=== PATIENT | female | born 1950 | race Caucasian/White ===

== ENCOUNTER 2017-11-22 08:30 | Emergency (ER) | payer BC, MEDICARE ==
[2017-11-22] MEDS ORDERED: Ketorolac Tromethamine 60 MG/2 ML VIAL ONE (09:20)
--- NOTE | 2017-11-22 10:18 | RAD ---
FOUR VIEWS RIGHT KNEE: DATE: 11/22/17. HISTORY: Right knee pain. History of prior surgery a few years ago. COMPARISON: 07/06/15. FINDINGS: Postoperative changes of the patella are again noted with a screw and cerclage wire surrounding the p atella. However, there is a fracture of the cerclage wire in 2 separate locations which was also not ed on the prior exam. No acute fracture or dislocation is seen. No joint space narrowing is appreci ated. Minimal osteophytes are seen at the medial joint compartment. A small joint effusion is prese nt. IMPRESSION: 1. Small joint effusion without evidence of an acute fracture. 2. Postoperative changes of the patella with fractured cerclage wire again noted. POS: [facility]
== END 2017-11-22 10:28 | disposition home or self-care (01) ==
LOC: ERS 08:30
DX: M25.561 Pain in right knee (principal); G47.30 Sleep apnea, unspecified; K21.9 Gastro-esophageal reflux disease without esophagitis
CPT/HCPCS: 96372; J1885

== ENCOUNTER 2018-07-02 22:40 | Emergency (ER) | payer OTHER, MEDICARE ==
--- NOTE | 2018-07-02 23:21 | CT ---
BRAIN CT WITHOUT IV CONTRAST: 07/02/18 HISTORY: Injury following a fall face first after tripping in the parking lot. Positive loss of consciousness. COMPARISON: 12/10/16. FINDINGS: There is no focal intracranial mass or acute hemorrhage. Small stable punctate left frontal subcortic al calcified focus. Minimal sinus mucosal disease. IMPRESSION: No significant acute intracranial process. No mass or bleed. Stable appearing left frontal subcortica l calcific punctate focus. POS: [facility]
--- NOTE | 2018-07-02 23:30 | CT ---
CERVICAL SPINE CT SCAN WITHOUT IV CONTRAST 07/02/18 HISTORY: Cervical injury following a trip and fall in the parking lot. Generalized disc osteophytosis and facet arthrosis changes. Evidence for spondylosis. There is no e vidence for acute fracture or dislocation or significant malalignment. The C7 vertebral body is compl etely included although the T1 vertebral body is not included. The C7-T1 space is included on this st udy. IMPRESSION: Cervical spondylosis without evidence for acute fracture or dislocation. Findings were discussed with Dr. Pedersen in regards to the fact that T1 was not completely included on this study and that if this patient had any symptoms, particularly any pain at the cervicothoracic ju nction, that the patient be returned back to CT for some additional imaging to completely include the T1 level. He indicated that the patient was not tender in this region. Additionally, findings of no significant acute process on the head CT scan was discussed with Dr. Pedersen as well at 2321 hours. POS: [facility]
--- NOTE | 2018-07-02 23:34 | RAD ---
RIGHT CLAVICLE TWO VIEWS: 07/02/18 HISTORY: Right clavicle pain following a trip and fall. Large body habitus somewhat lowers the sensitivity of this study. Comparison is made to a prior 01/08/06 study. Arthrosis and degenerative changes noted of the AC joint and glenohumeral joint. No obvious acute cla vicle fracture is seen. IMPRESSION: Somewhat limited exam because of body habitus. No overt acute fracture or dislocation. Degenerative changes. POS: [facility]
--- NOTE | 2018-07-02 23:35 | RAD ---
CHEST ONE VIEW: 07/02/18 HISTORY: Chest injury following a trip and fall in the parking lot with chest injury. COMPARISON: 09/22/14. Large body habitus somewhat lowers the sensitivity of this study. Heart size is within upper range of normal limits. No confluent pneumonia, overt edema, or pleural effusion. IMPRESSION: No significant acute intrathoracic disease. Borderline sized heart. POS: [facility]
[2018-07-03] MEDS ORDERED: Ketorolac Tromethamine 30 MG/ML VIAL ONE (00:48)
[2018-07-03] MEDS ORDERED: HYDROcodone/Acetaminophen 5/325 mg Tablet ONE (00:48)
== END 2018-07-03 00:58 | disposition home or self-care (01) ==
LOC: ERS 22:40
DX: S43.401A Unspecified sprain of right shoulder joint, initial encounter (principal); G47.30 Sleep apnea, unspecified; K21.9 Gastro-esophageal reflux disease without esophagitis; W01.198A Fall on same level from slipping, tripping and stumbling with subsequent striking against other object, initial encounter; Y92.481 Parking lot as the place of occurrence of the external cause
CPT/HCPCS: 70450; 71045; 72125; 96374; J1885

== ENCOUNTER 2019-01-18 10:30 | Outpatient (CLI) | payer MEDICARE ==
--- NOTE | 2019-01-18 12:24 | RAD ---
LEFT ANKLE 3 VIEWS: Date: 01/18/19 HISTORY: Pain and swelling in the left ankle. FINDINGS/IMPRESSION: No acute fracture or dislocation or bony destruction seen. The ankle mortise is maintained. There are posterior and plantar calcaneal spurs. POS: [facility]
== END 2019-01-18 10:31 | disposition home or self-care (01) ==
LOC: RAD-FRANK 10:30
PROVIDERS: ATTEND Nurse Practitioner Family
DX: M25.472 Effusion, left ankle (principal); M77.32 Calcaneal spur, left foot

== ENCOUNTER 2019-03-31 06:33 | Outpatient (CLI) | payer MEDICARE, OTHER ==
[2019-03-31 11:42] LABS: #Eosinphils 0.3 thou/uL (0.0-0.7); #Lymphocytes 1.9 thou/uL (1.20-3.40); #Monocytes 0.6 thou/uL (0.11-0.59); #Neutrophils 3.8 thou/uL (1.40-6.50); %Basophils 0.7 % (0.0-1.0); %Eosinophils 4.5 % (0.0-10.0); %Lymphocytes 28.8 % (21.0-51.0); %Monocytes 8.9 % (0.0-10.0); %Neutrophils 57.1 % (42.0-75.0); Hemoglobin 14.9 g/dL (12.0-16.0); Mean Corpuscular HGB CONC 32.7 g/dL (32.0-36.0); Mean Corpuscular Hemoglobin 31.1 pg (27.0-31.0); Mean Corpuscular Volume 95.1 fL (78.0-98.0); Mean Platelet Volume 7.4 fL (7.4-10.4); Platelet Count 207 thou/uL (130-400); White Blood Cell (WBC) Count 6.6 thou/uL (4.8-10.8)
[2019-03-31 12:02] LABS: Anion Gap 11 mmol/L (10-20); BUN (Urea Nitrogen) 17 mg/dL (9.8-20.1); Calc. Creatinine Clearance 0 mL/min (70-130); Calcium 9.2 mg/dL (7.8-10.44); Carbon Dioxide 19 mmol/L (23-31); Chloride 110 mmol/L (98-107); Estimated GFR-MDRD 55; Glucose 95 mg/dL (80-115); Potassium 4.3 mmol/L (3.5-5.1); Sodium 136 mmol/L (136-145)
--- NOTE | 2019-03-31 16:53 | EKG ---
Test Reason : Blood Pressure : / mmHG Vent. Rate : 053 BPM Atrial Rate : 053 BPM P-R Int : 158 ms QRS Dur : 088 ms QT Int : 418 ms P-R-T Axes : 027 052 061 degrees QTc Int : [address] elevation, consider early repolarization Abnormal ECG Confirmed by LALO MCCAIN ([id number]) on 03/31/2019 4:52:58 PM Referred By: MELISA Confirmed By:LALO MCCAIN
== END 2019-03-31 06:34 | disposition home or self-care (01) ==
LOC: LABBT 06:33
PROVIDERS: ATTEND Orthopaedic Surgery
DX: Z01.818 Encounter for other preprocedural examination (principal); S46.011D Strain of muscle(s) and tendon(s) of the rotator cuff of right shoulder, subsequent encounter
CPT/HCPCS: 80048; 85025; 93005; 93010

== ENCOUNTER 2019-04-13 05:41 | Day surgery (SDC) | payer OTHER ==
--- NOTE | 2019-04-12 08:43 | HP ---
HISTORY OF PRESENT ILLNESS: The patient is a 68-year-old female, who injured her dominant right shoulder when she parking lot at work in July of this year. She has had persistent pain and weakness despite rest, restriction of activities, anti-inflammatory medications, physical therapy, and cortisone injections. The pain interfering from day-to-day activities including driving, getting dressed, and sleeping. She denies problems prior to her fall. PAST MEDICAL HISTORY: The patient has history of reflux and possible hypertension. MEDICATIONS: She has taken etodolac and meloxicam for current symptoms. Other medications include, 1. Nexium. 2. Robaxin. 3. Claritin. ALLERGIES: SHE HAS NO KNOWN ALLERGIES. FAMILY HISTORY: Otherwise unremarkable. SOCIAL HISTORY: Otherwise unremarkable. REVIEW OF SYSTEMS: Otherwise unremarkable. PHYSICAL EXAMINATION: GENERAL: Reveals a healthy, heavy-set female. HEENT: Unremarkable. NECK: Supple. CHEST: Clear. HEART: Regular rate and rhythm. ABDOMEN: Soft. Nontender. PELVIC: Deferred. RECTAL: Deferred. BREAST EXAM: Deferred. EXTREMITIES: Pertinent findings in the right shoulder, there is no definite atrophy. There is tenderness in the subacromial area. She has 170 degrees of forward flexion, which is painful. There is weakness with abduction and external rotation. There is no instability. NEUROVASCULAR EXAM: Intact. There is a positive impingement sign. DIAGNOSTIC STUDIES: X-rays of the right shoulder reveal DJD of the AC joint and the humeral head may be slightly high-riding. There are some cystic changes over the greater tuberosity, which appear to be chronic. Open MRI scan of the right shoulder reveals a full-thickness tearing of the supraspinatus tendon with retraction and possible some superior migration of the humeral head. IMPRESSION: Impingement syndrome and rotator cuff tear of right shoulder, possible component of acute on chronic rotator cuff tear. PLAN: Open acromioplasty and attempted rotator cuff repair, if possible biceps tenodesis. The nature of surgery, length of recovery, and potential complications such as infection, loss of motion, incomplete relief, inability to repair the tear, recurrent tear, neurovascular injury, and need for additional treatment and repeat surgery have been discussed in detail. Job ID: [id number]
[2019-04-13] MEDS ORDERED: Fentanyl 100 MCG/2 ML VIAL ONE ×4 (06:38→10:29)
[2019-04-13] MEDS ORDERED: Midazolam HCl 2 mg/2 ml Vial ONE (06:38)
[2019-04-13] MEDS ORDERED: Ondansetron PF 4 MG/2 ML Vial IVP PRN (07:45)
[2019-04-13] MEDS ORDERED: Ropivacaine 0.2% 550 ML 550 ML NERVE BLCK SCH (07:45)
[2019-04-13] MEDS ORDERED: Zolpidem Tartrate 5 MG TAB PO PRN (07:45)
[2019-04-13] MEDS ORDERED: traMADol HCl 50 MG TAB PO PRN ×2 (07:45)
[2019-04-13] MEDS ORDERED: Promethazine HCl 25 MG/ML VIAL IM PRN (07:45)
[2019-04-13] MEDS ORDERED: HYDROcodone/Acetaminophen 10/325 mg Tablet PO PRN ×2 (07:45)
[2019-04-13] MEDS ORDERED: Fentanyl 100 MCG/2 ML VIAL SLOW IVP PRN ×2 (07:46→15:55)
[2019-04-13] MEDS ORDERED: Ropivacaine 0.2% HCl/PF (40 MG/20 ML VIAL) ONE (10:24)
[2019-04-13] MEDS ORDERED: Lidocaine 1% PF 5 ML VIAL ONE (10:24)
[2019-04-13] MEDS ORDERED: Ropivacaine 0.5% HCl/PF (150 MG/30 ML VIAL) ONE (10:24)
[2019-04-13] MEDS ORDERED: PROPOFOL 200 MG/20 ML VIAL ONE (10:24)
[2019-04-13] MEDS ORDERED: Rocuronium Bromide 10 MG/ML (10ML VIAL) ONE (10:24)
[2019-04-13] MEDS ORDERED: Ketorolac Tromethamine 30 MG/ML VIAL ONE (10:24)
[2019-04-13] MEDS ORDERED: Glycopyrrolate 0.2 MG/ML 5 ML SYRINGE ONE (10:24)
[2019-04-13] MEDS ORDERED: Ondansetron PF 4 MG/2 ML Vial ONE ×2 (10:24→11:45)
[2019-04-13] MEDS ORDERED: HYDROmorphone 0.5 MG/0.5 ML SYRINGE ONE (10:29)
[2019-04-13] MEDS ORDERED: Promethazine HCl 25 MG/ML VIAL ONE (12:13)
--- NOTE | 2019-04-13 12:15 | OP ---
DATE OF PROCEDURE: 04/13/2019 GAME ATTENDANT: JOSE Singh ANESTHESIA: General plus scalene block. PREOPERATIVE DIAGNOSIS: Chronic rotator cuff tear, right shoulder. POSTOPERATIVE DIAGNOSIS: Chronic rotator cuff tear, right shoulder. PROCEDURE PERFORMED: Open acromioplasty and rotator cuff repair, right shoulder. FINDINGS: There is moderate subacromial prominence. There is a chronic rotator cuff tear with [id number] retraction. The biceps tendon was intact and I left this in place. The tear was quite retracted, required mobilization, and I could not totally pull to get the distal portion of repair. I was able to approximate at least 90% of the tendon in hope this will improve function. DESCRIPTION OF PROCEDURE: After satisfactory anesthesia was induced in a semi-rangel chair position, the patient was prepped and draped in routine manner. The shoulder was approached on anterolateral incision, centered over anterolateral edge of the acromion process, carried down through subcutaneous tissues. Bleeding points were controlled with Bovie cautery. The deltoid raphe was split and the deltotrapezial fascia split over the anterolateral aspect of the acromion process. The coracoacromial ligament was incised. The deltoid was retracted. The acromioplasty was accomplished with an osteotome with anterior surface cut flushed to the distal clavicle and the undersurface beveled with a rasp and rongeur. Partial subacromial bursectomy was performed. Using sharp and blunt dissection, the above findings were noted. Traction sutures were placed in the anterior and posterior limbs of the rotator cuff tear for immobilization and using blunt dissection and a Hernandez elevator, both limbs were freed up as much as possible, both superiorly and inferiorly. Two convergence stitches of heavy FiberWire suture were placed, bringing the two limbs together. The remaining repair was accomplished with a suture anchor placed in the greater tuberosity at the double-arm suture anchor with one limb placed in anteriorly and one suture limb placed in the posterior in a mattress-type fashion. These were then tied. This left us a small triangular-shaped defect at the distal ends of repair that I could not bring together, but this appeared to be satisfactory. It was further reinforced by tying the sutures used in the suture anchor with double row technique in humberto-cross fashion using the SwiveLock anchors. The shoulder was placed through range of motion and the repair appeared to be stable. There was satisfactory subacromial clearance. The wound was then thoroughly irrigated. The deltoid was repaired back to bone with interrupted #1 Ethibond. The deltoid raphe was repaired with interrupted #1 Vicryl. Subcutaneous tissue was closed with interrupted 2-0 Vicryl. The skin was closed with staple gun. Sterile dressings were applied. The patient immobilized in an arm sling. She was awakened, taken to the recovery room in stable condition. There were no apparent intraoperative complications. The estimated blood loss was less than 100 mL. She will be discharged home in satisfactory condition, instructed on ice elevation, given written care instructions. She was instructed on isometrics of biceps and triceps and gentle passive pendulum exercises, active range of motion. She was given prescription for [place] 10 for pain, 60 tablets. She will be rechecked in my office in approximately 2 weeks or sooner if any problems prior to that time. Job ID: [id number]
[2019-04-13] MEDS ORDERED: Scopolamine 1.5 mg/72 hour Patch ONE (13:23)
[2019-04-13 16:25] VITALS: BMI 40.3
[2019-04-13] MEDS: Ketorolac Tromethamine 30 MG/ML VIAL IVP SCH ×2 (16:55→18:23)
[2019-04-13] MEDS: Meloxicam 7.5 MG TAB PO SCH (20:52)
[2019-04-14] MEDS: Ketorolac Tromethamine 30 MG/ML VIAL IVP SCH ×3 (00:53→12:54)
[2019-04-14] MEDS: Meloxicam 7.5 MG TAB PO SCH (08:44)
[2019-04-14 12:13] VITALS: BP 152/82; TEMP 98.5
== END 2019-04-14 14:57 | disposition home or self-care (01) ==
LOC: SDC 05:41 → SURG A 15:55 → SDC 04-14 14:57
PROVIDERS: ATTEND Orthopaedic Surgery
PROC: 0RNJ0ZZ Release Right Shoulder Joint, Open Approach (ICD-10-PCS; principal; 2019-04-13)
PROC: 3E0T3BZ Introduction of Anesthetic Agent into Peripheral Nerves and Plexi, Percutaneous Approach (ICD-10-PCS; principal; 2019-04-13)
PROC: 0LM10ZZ Reattachment of Right Shoulder Tendon, Open Approach (ICD-10-PCS; principal; 2019-04-13)
DX: S46.011A Strain of muscle(s) and tendon(s) of the rotator cuff of right shoulder, initial encounter (principal); M25.811 Other specified joint disorders, right shoulder; M19.011 Primary osteoarthritis, right shoulder; G89.18 Other acute postprocedural pain; K21.9 Gastro-esophageal reflux disease without esophagitis; Z87.891 Personal history of nicotine dependence; Z79.899 Other long term (current) drug therapy; X58.XXXA Exposure to other specified factors, initial encounter; Y92.481 Parking lot as the place of occurrence of the external cause; Y99.0 Civilian activity done for income or pay
CPT/HCPCS: A4306; C1713; J0690; J1170; J1885; J2001; J2250; J2405; J2550; J2704; J2795; J3010

== ENCOUNTER 2022-03-29 20:12 | Emergency (ER) | payer MEDICARE ==
[2022-03-29] MEDS ORDERED: Ketorolac Tromethamine 30 MG/ML VIAL ONE (20:42)
[2022-03-29 21:23] LABS: Bacteria/HPF 4+ HPF (None Seen); Bilirubin Negative (Negative); Blood, Urine 2+ (Negative); Clarity Turbid (Clear); Glucose, Urine (Dipstick) Normal (Negative); Ketone, Urine Negative (Negative); Leukocyte 500 Leu/uL (Negative); Nitrite Negative (Negative); Protein, Urine (Dipstick) 20 mg/dL (Neg-Trace); RBC/HPF 21-50 HPF (0-3); Renal Epithelial 0-3 HPF (None Seen); Specific Gravity, Urine 1.012 (1.002-1.036); Urobilinogen Normal mg/dL (Less than 2); WBC/HPF Greater than 50 HPF (0-3); pH, Urine 5.5 (5.0-9.0)
== END 2022-03-29 23:11 | disposition home or self-care (01) ==
LOC: ERS 20:12
DX: M54.50 Low back pain, unspecified (principal); K21.9 Gastro-esophageal reflux disease without esophagitis
CPT/HCPCS: 81003; 81015; 96374; J1885

== ENCOUNTER → 2022-09-06 | Emergency (ER) | payer MEDICARE, OTHER | LOC: ERS 19:34 | DX: S00.12XA Contusion of left eyelid and periocular area, initial encounter (principal); K21.9 Gastro-esophageal reflux disease without esophagitis; M25.532 Pain in left wrist; M25.561 Pain in right knee; W01.198A Fall on same level from slipping, tripping and stumbling with subsequent striking against other object, initial encounter | CPT/HCPCS: 70450; 70486; 72125 ==

== ENCOUNTER 2023-12-18 13:43 | Outpatient (CLI) | payer MEDICARE | END 2023-12-18 13:44 | disposition home or self-care (01) | LOC: BICMAMMO 13:43 | PROVIDERS: ATTEND Nurse Practitioner Family | DX: Z12.31 Encounter for screening mammogram for malignant neoplasm of breast (principal) | CPT/HCPCS: 77063; 77067 ==